=== PATIENT | male | born 1975 | race Two or more races ===

== ENCOUNTER 2020-12-23 23:39 | Inpatient (IN) | payer BC, OTHER ==
[~2020-12-23] VITALS: Ht 172.7 cm; Wt 89.0 kg
[2020-12-24 00:04] LABS: Basophils # (auto) 0.1 10 ^3/uL (0-0.2); Basophils % (auto) 0.6 % (0.0-2.0); Eosinophils # (auto) 0.1 10 ^3/uL (0-0.8); Eosinophils % (auto) 0.9 % (0.0-7.0); Hematocrit 46.4 % (41.0-53.0); Hemoglobin 16.3 g/dL (13.5-17.5); Lymphocytes # (auto) 2.3 10 ^3/uL (0.4-5.4); Lymphocytes % (auto) 15.2 % (10.0-50.0); Mean Corpuscular Hemoglobin 30.1 pg (28.0-32.0); Mean Corpuscular Hgb Conc. 35.2 g/dL (32.0-36.0); Mean Corpuscular Volume 85.5 fL (80.0-100.0); Monocytes # (auto) 1.1 10 ^3/uL (0-1.3); Monocytes % (auto) 7.1 % (0.0-12.0); Neutrophils # (auto) 11.3 10 ^3/uL (1.6-8.6); Neutrophils % (auto) 76.2 % (37.0-80.0); Red Blood Cells 5.43 10^6/uL (4.5-5.90); Red Cell Distribution Width 12.3 % (11.8-14.3); White Blood Cell 14.9 10^3/uL (4.4-10.8)
[2020-12-24 00:18] LABS: Alanine Aminotransferase 70 U/L (16-61); Albumin 3.9 g/dL (3.4-5.0); Anion Gap 8 (5-15); Aspartate Aminotransferase 85 U/L (15-37); BUN/Creatinine Ratio 10.2; Blood Urea Nitrogen 11 mg/dL (7-18); Calcium 8.6 mg/dL (8.5-10.1); Carbon Dioxide 28 mmol/L (21-32); Chloride 103 mmol/L (98-107); GFR African American 96 mL/min; GFR Non-African American 79 mL/min; Glucose 159 mg/dL (74-106); Lipase 93 U/L (73-393); Potassium 3.4 mmol/L (3.5-5.1); Sodium 139 mmol/L (136-145)
[2020-12-24 00:23] LABS: Alkaline Phosphatase 122 U/L (45-117); Bilirubin, Total 1.2 mg/dL (0.2-1.0); Total Protein 7.9 g/dL (6.4-8.2)
[2020-12-24] MEDS ORDERED: KETOROLAC TROMETH 30 MG/ML 1ML VIAL IV ONE (00:30)
[2020-12-24] MEDS ORDERED: SODIUM CHLORIDE 0.9% 1,000 ML IV ONE (00:30)
[2020-12-24] MEDS ORDERED: ONDANSETRON HCL 4 MG/2 ML VIAL IV ONE ×2 (00:30→04:00)
[2020-12-24] MEDS ORDERED: fentaNYL CITRATE 100 MCG/2 ML VL IV ONE (00:30)
[2020-12-24 00:35] LABS: Urine Bacteria NONE SEEN /hpf (None Seen); Urine Blood Negative /uL (Negative); Urine Mucus FEW (None Seen); Urine WBC 2 /hpf (0 - 3)
[2020-12-24] MEDS ORDERED: levoFLOXacin 500MG 100 ML IV ONE (03:15)
[2020-12-24] MEDS ORDERED: metroNIDAZOLE 500MG/100ML 100 ML IV ONE (03:15)
[2020-12-24] MEDS ORDERED: ACETAMINOPHEN 325 MG TAB PO PRN (06:00)
[2020-12-24] MEDS ORDERED: POTASSIUM CHL 20MEQ/100ML 100 ML IV ONE (06:00)
[2020-12-24] MEDS ORDERED: NITROGLYCERIN 0.4 MG SL TAB SL PRN (06:00)
[2020-12-24] MEDS ORDERED: MORPHINE SULF INJ 2 MG/ML SYRINGE 1ML IV PRN (06:00)
[2020-12-24] MEDS ORDERED: MORPHINE SULFATE 4 MG/ML SYR/VIAL IV PRN (06:00)
[2020-12-24] MEDS ORDERED: SODIUM CHLORIDE 0.9% 1,000 ML IV SCH (06:00)
[2020-12-24 08:28] LABS: Basophils # (auto) 0 10 ^3/uL (0-0.2); Basophils % (auto) 0.5 % (0.0-2.0); Eosinophils # (auto) 0 10 ^3/uL (0-0.8); Eosinophils % (auto) 0.2 % (0.0-7.0); Hematocrit 42.3 % (41.0-53.0); Hemoglobin 15.3 g/dL (13.5-17.5); Lymphocytes # (auto) 1.2 10 ^3/uL (0.4-5.4); Mean Corpuscular Hemoglobin 30.6 pg (28.0-32.0); Mean Corpuscular Hgb Conc. 36.3 g/dL (32.0-36.0); Mean Corpuscular Volume 84.4 fL (80.0-100.0); Monocytes # (auto) 1.1 10 ^3/uL (0-1.3); Neutrophils # (auto) 7.7 10 ^3/uL (1.6-8.6); Neutrophils % (auto) 76.3 % (37.0-80.0); Nucleated Red Blood Cells % 0.1 %; Red Blood Cells 5.01 10^6/uL (4.5-5.90); Red Cell Distribution Width 12.3 % (11.8-14.3); White Blood Cell 10.1 10^3/uL (4.4-10.8)
[2020-12-24] MEDS: ONDANSETRON HCL 4 MG/2 ML VIAL IV PRN (08:40)
[2020-12-24 08:43] LABS: INR 1.1 (0.9-1.15); Partial Thromboplastin Time 28.1 sec (23.0-31.2)
[2020-12-24 08:50] LABS: Albumin 3.5 g/dL (3.4-5.0); Calcium 7.9 mg/dL (8.5-10.1); Potassium 4.4 mmol/L (3.5-5.1)
[2020-12-24 08:55] LABS: BUN/Creatinine Ratio 10.5; Bilirubin, Total 3.7 mg/dL (0.2-1.0); Total Protein 6.9 g/dL (6.4-8.2)
[2020-12-24 09:04] VITALS: BP 156/79
[2020-12-24] MEDS: PROMETHAZINE HCL 25 MG/ML 1ML IV PRN ×2 (10:24→19:44)
[2020-12-24 13:00] VITALS: BP 133/74
[2020-12-24] MEDS ORDERED: metroNIDAZOLE 500MG/100ML 100 ML IV SCH (14:00)
[2020-12-24] MEDS: HYDROcodone-ACET 5/325MG TAB PO PRN ×2 (14:35→19:44)
[2020-12-24 16:33] VITALS: BP 119/86
[2020-12-24] MEDS: METOCLOPRAMIDE HCL 5MG/ml INJ 2ml VIAL IV SCH ×2 (17:42→23:51)
[2020-12-24 22:00] VITALS: BP 116/78
[2020-12-25] MEDS: levoFLOXacin 500MG 100 ML IV SCH (03:08)
[2020-12-25 05:00] VITALS: BP 129/79
[2020-12-25 05:35] LABS: Basophils # (auto) 0.1 10 ^3/uL (0-0.2); Basophils % (auto) 0.8 % (0.0-2.0); Eosinophils # (auto) 0.1 10 ^3/uL (0-0.8); Eosinophils % (auto) 1.1 % (0.0-7.0); Hemoglobin 15.8 g/dL (13.5-17.5); Mean Corpuscular Hemoglobin 30.7 pg (28.0-32.0); Mean Corpuscular Volume 85.4 fL (80.0-100.0); Monocytes # (auto) 1.1 10 ^3/uL (0-1.3); Monocytes % (auto) 10.7 % (0.0-12.0); Neutrophils # (auto) 7.9 10 ^3/uL (1.6-8.6); Neutrophils % (auto) 77.4 % (37.0-80.0); Red Blood Cells 5.15 10^6/uL (4.5-5.90); Red Cell Distribution Width 12.5 % (11.8-14.3); White Blood Cell 10.2 10^3/uL (4.4-10.8)
[2020-12-25] MEDS: METOCLOPRAMIDE HCL 5MG/ml INJ 2ml VIAL IV SCH ×3 (05:41→17:52)
[2020-12-25 05:53] LABS: Albumin 3.3 g/dL (3.4-5.0); Calcium 7.8 mg/dL (8.5-10.1); Potassium 3.8 mmol/L (3.5-5.1)
[2020-12-25 05:57] LABS: BUN/Creatinine Ratio 10.1; Bilirubin, Total 8.1 mg/dL (0.2-1.0); Total Protein 6.9 g/dL (6.4-8.2)
[2020-12-25] MEDS: HYDROcodone-ACET 5/325MG TAB PO PRN ×2 (08:54→20:05)
[2020-12-25 09:00] VITALS: BP 123/81
[2020-12-25 13:00] VITALS: BP 119/74
[2020-12-25 17:00] VITALS: BP 127/76
[2020-12-25 22:00] VITALS: BP 123/75
[2020-12-26] MEDS: METOCLOPRAMIDE HCL 5MG/ml INJ 2ml VIAL IV SCH ×2 (00:23→05:46)
[2020-12-26] MEDS: HYDROcodone-ACET 5/325MG TAB PO PRN ×2 (00:24→20:55)
[2020-12-26] MEDS: levoFLOXacin 500MG 100 ML IV SCH (03:50)
[2020-12-26 05:00] VITALS: BP 117/74
[2020-12-26 05:17] LABS: Basophils # (auto) 0.1 10 ^3/uL (0-0.2); Basophils % (auto) 1.6 % (0.0-2.0); Eosinophils # (auto) 0.2 10 ^3/uL (0-0.8); Eosinophils % (auto) 3.9 % (0.0-7.0); Hematocrit 44.5 % (41.0-53.0); Hemoglobin 15.8 g/dL (13.5-17.5); Lymphocytes # (auto) 1.9 10 ^3/uL (0.4-5.4); Lymphocytes % (auto) 36.8 % (10.0-50.0); Mean Corpuscular Hemoglobin 33.8 pg (28.0-32.0); Mean Corpuscular Hgb Conc. 35.5 g/dL (32.0-36.0); Mean Corpuscular Volume 95.2 fL (80.0-100.0); Monocytes # (auto) 0.6 10 ^3/uL (0-1.3); Monocytes % (auto) 11.2 % (0.0-12.0); Neutrophils # (auto) 2.4 10 ^3/uL (1.6-8.6); Neutrophils % (auto) 46.5 % (37.0-80.0); Nucleated Red Blood Cells % 0.1 %; Red Blood Cells 4.68 10^6/uL (4.5-5.90); White Blood Cell 5.1 10^3/uL (4.4-10.8)
[2020-12-26 05:37] LABS: Albumin 3.5 g/dL (3.4-5.0); Calcium 8.3 mg/dL (8.5-10.1)
[2020-12-26 05:40] LABS: Bilirubin, Total 0.3 mg/dL (0.2-1.0); Total Protein 7.1 g/dL (6.4-8.2)
[2020-12-26 08:00] VITALS: BP 114/80
[2020-12-26] MEDS: FAMOTIDINE (10MG/ML) 2ML VL IV SCH (10:20)
[2020-12-26] MEDS: ONDANSETRON HCL 4 MG/2 ML VIAL IV PRN ×3 (10:21→20:55)
[2020-12-26] MEDS: MORPHINE SULF INJ 2 MG/ML SYRINGE 1ML IV PRN ×3 (10:21→22:17)
[2020-12-26 12:00] VITALS: BP 134/77
[2020-12-26] MEDS: metroNIDAZOLE 500MG/100ML 100 ML IV SCH ×2 (14:32→21:33)
[2020-12-26 16:00] VITALS: BP 133/77
[2020-12-26 22:00] VITALS: BP 130/82
[2020-12-27] MEDS: levoFLOXacin 500MG 100 ML IV SCH (02:28)
[2020-12-27 05:00] VITALS: BP 118/76
[2020-12-27 05:38] LABS: Basophils # (auto) 0.1 10 ^3/uL (0-0.2); Basophils % (auto) 1.1 % (0.0-2.0); Eosinophils # (auto) 0.2 10 ^3/uL (0-0.8); Eosinophils % (auto) 2.5 % (0.0-7.0); Hematocrit 44.1 % (41.0-53.0); Hemoglobin 15.8 g/dL (13.5-17.5); Lymphocytes % (auto) 12.3 % (10.0-50.0); Mean Corpuscular Hemoglobin 30.5 pg (28.0-32.0); Mean Corpuscular Hgb Conc. 35.8 g/dL (32.0-36.0); Monocytes # (auto) 1.1 10 ^3/uL (0-1.3); Monocytes % (auto) 13.7 % (0.0-12.0); Neutrophils # (auto) 5.5 10 ^3/uL (1.6-8.6); Neutrophils % (auto) 70.4 % (37.0-80.0); Nucleated Red Blood Cells % 0.1 %; Red Blood Cells 5.19 10^6/uL (4.5-5.90); Red Cell Distribution Width 12.7 % (11.8-14.3); White Blood Cell 7.8 10^3/uL (4.4-10.8)
[2020-12-27 05:52] LABS: Albumin 3.2 g/dL (3.4-5.0); Calcium 8.5 mg/dL (8.5-10.1); Potassium 3.7 mmol/L (3.5-5.1)
[2020-12-27] MEDS: metroNIDAZOLE 500MG/100ML 100 ML IV SCH ×2 (05:53→15:08)
[2020-12-27 05:55] LABS: Bilirubin, Total 8.9 mg/dL (0.2-1.0)
[2020-12-27] MEDS: ONDANSETRON HCL 4 MG/2 ML VIAL IV PRN ×2 (07:05→12:04)
[2020-12-27] MEDS: MORPHINE SULF INJ 2 MG/ML SYRINGE 1ML IV PRN (07:05)
[2020-12-27 08:35] VITALS: BP 117/75
[2020-12-27] MEDS: FAMOTIDINE (10MG/ML) 2ML VL IV SCH (11:07)
[2020-12-27] MEDS: HYDROcodone-ACET 5/325MG TAB PO PRN (12:05)
[2020-12-27 12:47] VITALS: BP 127/77
[2020-12-27 17:03] VITALS: BP 127/74
[2020-12-27 18:32] VITALS: BP 127/74
== END 2020-12-27 19:30 | disposition short-term general hospital (02) | DRG 446 ==
LOC: ER 23:39 → TELE 12-24 05:54 → TELE-CENTR 12-24 09:06
PROVIDERS: ADMIT Nurse Practitioner Family; ATTEND Internal Medicine
DX: K80.63 Calculus of gallbladder and bile duct with acute cholecystitis with obstruction (principal); Z20.822 Contact with and (suspected) exposure to COVID-19; K57.90 Diverticulosis of intestine, part unspecified, without perforation or abscess without bleeding; I10 Essential (primary) hypertension; E87.6 Hypokalemia; E66.9 Obesity, unspecified; Z68.29 Body mass index [BMI] 29.0-29.9, adult; K76.0 Fatty (change of) liver, not elsewhere classified; N20.0 Calculus of kidney; Z91.018 Allergy to other foods
CPT/HCPCS: 36415; 71045; 74176; 74181; 76705; 80053; 81001; 82150; 83036; 83690; 84443; 84484; 85025; 85049; 85610; 85730; 86850; 86900; 86901; 87426; 93005; 96361; 96365; 96367; 96375; 96376; G0378; J1885; J1956; J2405; J3480; J3490